=== PATIENT | female | born 1975 | race African-American/Black ===

== ENCOUNTER 2022-06-16 21:47 | Emergency (ER) | payer MEDICAID ==
[~2022-06-16] VITALS: Ht 165.1 cm; Wt 70.0 kg
[2022-06-16] MEDS ORDERED: ONDANSETRON HCL 4MG/2ML INJ IV STA (22:39)
[2022-06-16] MEDS ORDERED: SODIUM CHLORIDE 0.9% 1,000 ML IV ONE (22:45)
[2022-06-16 23:50] LABS: BASOPHILS % 0.6 % (0.0-2.0); EOSINOPHILS % 6.1 % (0.0-5.0); HEMATOCRIT. 41.5 % (36.0-48.0); HEMOGLOBIN. 13.8 g/dL (12.0-16.0); LYMPHOCYTES % 29.3 % (20.0-50.0); MEAN CORPUSCULAR HEMOGLOBIN 28.8 pg (28.0-32.0); MEAN CORPUSCULAR VOLUME 86.8 fL (81.0-99.0); MEAN PLATELET VOLUME 8.8 fl (7.4-10.4); MONOCYTES % 3.7 % (2.0-8.0); NEUTROPHILS % 60.3 % (40.0-76.0); PLATELET 248 x1000/uL (130-400); RED BLOOD CELL COUNT 4.79 mill/uL (4.2-5.4); RED CELL DISTRIBUTION WIDTH 15.2 % (11.6-14.6)
[2022-06-17] VITALS: BP 114/74
[2022-06-17 00:43] LABS: CHLORIDE 104 mEq/L (98-107)
[2022-06-17 01:12] LABS: ETHANOL BLOOD 349 mg/dL
== END 2022-06-17 01:15 | disposition home or self-care (01) ==
LOC: ER 21:47 → EDBD 21:47 → ER 06-17 01:15
DX: R41.82 Altered mental status, unspecified (principal)
CPT/HCPCS: 36415; 70450; 80053; 80320; 85025; 99291; J7030; Z7610; G0480